=== PATIENT | female | born 1950 | race Caucasian/White ===

== ENCOUNTER → 2017-07-22 06:24 | Outpatient (CLI) | payer MEDICARE, SELFPAY ==
--- NOTE | 2017-07-22 06:27 | VDLE_ITS ---
Reason For Study: chronic venous insufficiency, leg pain RIGHT LEFT CFV is compressible, spontaneous, phasic, CFV is compressible, spontaneous, phasic, competent and demonstrates normal competent, and demonstrates normal augmentation. augmentation. FV is compressible, spontaneous, phasic, FV is compressible, spontaneous, phasic, competent and demonstrates normal competent and demonstrates normal augmentation. augmentation. POP V is compressible, spontaneous, phasic, POP V is compressible, spontaneous, phasic, competent and demonstrates normal competent and demonstrates normal augmentation. augmentation. T/P Trunk is compressible. T/P Trunk is compressible. PTV is compressible. PTV is compressible. RT PerV is compressible. LT PerV is compressible. S-F Junction is competent. S-F Junction is competent. GSV is incompetent throughout for greater GSV is incompetent throughout for greater than .5 seconds. GSV measures .451 x .428 than .5 seconds. GSV measures .296 x .296 cm. cm. ASV at the knee is incompetent for greater ASV at the knee is incompetent for greater than .5 seconds. ASV measures .387 x .365 than .5 seconds. ASV measures .177 x .166 cm. cm. ASV at the proximal calf is incompetent for ASV at the proximal calf is incompetent for greater than .5 seconds. ASV measures .249 greater than .5 seconds. ASV measures .220 x .318 cm. x .214 cm. ASV lateral groin is incompetent for greater SSV is incompetent for greater than .5 than .5 seconds. ASV measures .289 x .283 seconds. SSV measures .368 x .347 cm. cm. SSV is competent. Procedure Exam performed in department. The exam was diagnostic. Interpretation Summary Deep veins of the lower extremities are bilaterally patent and compressible segmentally. There is no evidence of deep vein thrombosis on either side. Valvular competence appears intact within the proximal deep venous systems bilaterally. The greater saphenous veins appear bilaterally patent and compressible segmentally. Sapheno-femoral junctions are bilaterally competent . Segmental valvular incompetence is noted within the greater saphenous veins bilaterally. The right small saphenous vein is patent and competent. The left small saphenous vein is patent and incompetent. The right anterior accessory saphenous vein is incompetent. Right accessory saphenous veins at the knee and proximal calf are incompetent. Left accessory saphenous veins at the knee and proximal calf are incompetent. Ordering Physician: Forest Kirkland Performed By: Williams Olivier RVT
--- NOTE | 2017-07-27 11:11 | LEAS_ITS ---
Arterial Study - Arterial Study Arterial Study: This is a 66-year-old female who presents with a history of peripheral arterial occlusive disease. The patient was brought to the noninvasive vascular laboratory at this time for the purpose of bilateral noninvasive lower extremity arterial assessment. Doppler signal assessment was used to evaluate the pulses at ankle level bilaterally. The posterior tibial and dorsalis pedis pulses were triphasic bilaterally. Segmental limb pressures were obtained bilaterally. The right ankle pressure, as determined by posterior tibial pulse, was measured at 169 mmHg. The right ankle pressure, as determined by dorsalis pedis pulse, was measured at 168 mmHg. The left ankle pressure, as determined by posterior tibial pulse, was measured at 163 mmHg. The left ankle pressure, as determined by dorsalis pedis pulse, was measured at 169 mmHg. Pulse-volume recordings were obtained bilaterally and segmentally at ankle and digital levels. Waveform amplitudes appeared to be satisfactory bilaterally. Resting ankle-brachial indices were calculated bilaterally. The resting right ankle-brachial index was calculated to be 1.16. The resting left ankle- brachial index was calculated to be 1.16. Impression: Based upon the findings of this resting noninvasive lower extremity arterial study, there is no evidence of significant atherosclerotic peripheral arterial occlusive disease in the lower extremities bilaterally. Triphasic waveforms were noted at ankle level bilaterally. Resting ankle-brachial indices were bilaterally normal. In summary, this represents a normal resting noninvasive lower extremity arterial study bilaterally.
== END ==
PROVIDERS: Family Provider Family Medicine; PCP Family Medicine; Visit Provider Surgery
DX: I73.9 Peripheral vascular disease, unspecified (principal); M79.605 Pain in left leg; M79.604 Pain in right leg; F17.200 Nicotine dependence, unspecified, uncomplicated
CPT/HCPCS: 93922; 93970

== ENCOUNTER → 2020-06-07 12:49 | Outpatient (CLI) | payer MEDICARE, SELFPAY ==
[2020-06-07 08:17] VITALS: BMI 32.6
[2020-06-12 16:44] LABS: HPV APTIMA, High Risk Negative (Negative)
== END ==
PROVIDERS: PCP Family Medicine; Referring Provider Obstetrics & Gynecology; Visit Provider Obstetrics & Gynecology
DX: Z12.4 Encounter for screening for malignant neoplasm of cervix (principal)
CPT/HCPCS: 87624; 88175; G0145

== ENCOUNTER → 2020-06-15 11:14 | Outpatient (CLI) | payer MEDICARE, SELFPAY ==
[2020-06-07 08:17] VITALS: BMI 32.6
--- NOTE | 2020-06-15 11:16 | US_ITS ---
STUDY: ULTRASOUND OF THE FEMALE PELVIS - COMPLETE REASON FOR EXAM: Female, 69 years old. Pelvic cramping -- FX OVARIAN CA LMP: Patient is postmenopausal. TECHNIQUE: Transabdominal and Transvaginal TECHNICAL QUALITY: Adequate. COMPARISON: None. FINDINGS: The uterus is anteverted and is in a midline position. The uterus measures 6.8 cm x 3.1 cm x 4.2 cm. There is a Nabothian cyst of the cervix. The endometrium is thickened and measures 7.8 mm in thickness, and is heterogeneous (striated). I suspect a 1.1 cm x 1 cm x 0.6 cm endometrial polyp. There is no demonstrated myometrial mass. There is a 1 cm x 0.8 cm x 0.6 cm complex solid nodule within the cervix with increased vascularity. Clinical correlation is recommended. The right ovary is non-visualized. The left ovary is non-visualized. There is no fluid in the cul-de-sac. The pre void volume of the bladder was 148 ml. US/Pelvic (Non ) IMPRESSION: Heterogeneous thickening of the endometrium with a possible 1.1 cm x 1 cm x 0.6 cm endometrial polyp. 1 cm x 0.8 cm x 0.6 cm complex solid nodule in the cervix is vascularity. Clinical correlation is recommended. Electronically Signed: Campbell Kearney MD at 13:16 EDT , Service support ,
--- NOTE | 2020-06-15 11:16 | US_ITS ---
STUDY: ULTRASOUND OF THE FEMALE PELVIS - COMPLETE REASON FOR EXAM: Female, 69 years old. Pelvic cramping -- FX OVARIAN CA LMP: Patient is postmenopausal. TECHNIQUE: Transabdominal and Transvaginal TECHNICAL QUALITY: Adequate. COMPARISON: None. FINDINGS: The uterus is anteverted and is in a midline position. The uterus measures 6.8 cm x 3.1 cm x 4.2 cm. There is a Nabothian cyst of the cervix. The endometrium is thickened and measures 7.8 mm in thickness, and is heterogeneous (striated). I suspect a 1.1 cm x 1 cm x 0.6 cm endometrial polyp. There is no demonstrated myometrial mass. There is a 1 cm x 0.8 cm x 0.6 cm complex solid nodule within the cervix with increased vascularity. Clinical correlation is recommended. The right ovary is non-visualized. The left ovary is non-visualized. There is no fluid in the cul-de-sac. The pre void volume of the bladder was 148 ml. US/Transvaginal Non- IMPRESSION: Heterogeneous thickening of the endometrium with a possible 1.1 cm x 1 cm x 0.6 cm endometrial polyp. 1 cm x 0.8 cm x 0.6 cm complex solid nodule in the cervix is vascularity. Clinical correlation is recommended. Electronically Signed: Campbell Kearney MD at 13:16 EDT , Service support ,
== END ==
PROVIDERS: PCP Family Medicine; Referring Provider Obstetrics & Gynecology; Visit Provider Obstetrics & Gynecology
DX: R10.2 Pelvic and perineal pain (principal)
CPT/HCPCS: 76830; 76856

== ENCOUNTER 2020-07-25 05:42 | Day surgery (SDC) | payer MEDICARE, SELFPAY ==
[2020-07-13 13:16] VITALS: BMI 32.3
--- NOTE | 2020-07-25 | EMB_PTH ---
PATIENT: KLEBER CALDERÓN LOC: [facility] [place] U#:[id number] AGE/SX: 69/F ROOM: RE07/25/[address]: Dr. Geraldine Caruso MD : [id number] BED: DIS: 07/25/2020 SPEC #: [id number] RECD: 07/25/20 10:02 STATUS: BERNARDINO RIGGS #: [id number] SILVINO: 07/25/20 00:[address]: Geraldine Caruso DEPT: SURGICAL PATHOLOGY RECD BY: Renae Arteaga ENTERED: 07/25/20 10:41 SP TYPE: ENDOM BX/C ANSON DR: Dr. Smooth Dubois MD Tissues: Endometrium, NOS Procedures: Surgery Specimen Level IV HEADER OPERATION: Hysteroscopy, D & C Symphion PRE-OP DIAGNOSIS: Endometrial polyp TISSUE SUBMITTED: Endometrial curettings, polyp MICROSCOPIC DIAGNOSIS Endometrial curettings, polyp: Cystic atrophic endometrium. Fragments of myometrium. Fragments of benign squamous epithelium. See comment. ERASTO:moses 07/26/2020 COMMENT A few of the fragments have polypoid appearance and may represent fragments of polyp with cystic atrophic changes. MICROSCOPIC DESCRIPTION Slides are reviewed. GROSS DESCRIPTION Received in fixative is one container labeled with the patient's name and designated endometrial curettings, polyp. The specimen consists of multiple irregular fragments of rivers-pink soft tissue that in aggregate measure 3 x 2.5 x 0.3 cm. The specimen is totally submitted in one cassette. / ERASTO:moses 07/25/2020 TC:5 CPT: 41398
[2020-07-25] MEDS: Acetaminophen 500 MG Tablet 1000 MG PO (09:26)
[2020-07-25 10:24] VITALS: BP 135/71; PULSE 71; RESP 16; TEMP 36.4; O2SAT 95
--- NOTE | 2020-07-25 10:27 | OP.PCM_ITS ---
Problems Associated Problem List Diagnoses (1) Endometrial polyp: Report of Operation Date of Procedure: 07/25/20 Pre-Operative Diagnosis: Suspected endometrial polyp Post-Operative Diagnosis: Endometrial polyp Surgery/Procedure Performed:: Hysteroscopy, D&C, symphion polypectomy Description of Surgical Findings:: Multiple endometrial polyps. Cervical stenosis. materials research engineer: None Type of Anesthesia: MAC Specimen's removed: EMC, polyp Estimated Blood Loss (mL): 10 Fluids Replaced: 1000 Description of Procedure: The patient was taken to the operating room where general anesthesia was obtained without difficulty. She was prepped and draped in the dorsolithotomy position with yellowfin stirrups. Weighted speculum was placed in the posterior aspect of the vagina and the anterior lip of the cervix was grasped with a single-tooth tenaculum. The cervix was sequentially dilated to accommodate the hysteroscope. The hysteroscope was then introduced into the uterine cavity and the above findings were noted. The symphion device was then introduced through the hysteroscope and activated to fully resect the polyps. Hemostasis was noted. The procedure was deemed complete. All instruments were then removed from the vagina. The patient was again from anesthesia and taken to the recovery room in stable condition. Complications None apparent Admit VTE Documentation VTE Present on Admission: No VTE Mechan Device Prophylaxis: [facility] [place] Pharm Prophylaxis ordered?: No [id number]: [id number] Hysteroscopy, EMC,Polypectomy
[2020-07-25 10:31] LABS: Hematocrit 45.4 % (37-47); Hemoglobin 14.7 g/dL (12.0-15.0); Mean Corp Hgb Conc 32.4 g/dL (32-36); Mean Corpuscular Hgb 29.9 pg (27.0-32.0); Mean Corpuscular Volume 92.5 fL (81-99); Mean Platelet Vol. 9.8 fl (6.2-12.0); Platelet Count 230 K/mm3 (150-450); RBC Distribution Width CV 13.5 % (11.6-14.6); RBC Distribution Width SD 45.7 fl (35.1-43.9); Red Blood Count 4.91 M/mm3 (4.2-5.4); White Blood Count 8.5 K/mm3 (4.4-11.0)
--- NOTE | 2020-07-25 10:35 | HP.PCM.OB_ITS ---
HPI - General HPI Narrative KLEBER CALDERÓN, is a 69 F who presents for hysteroscopy D&C, polypectomy for suspected endometrial polyp [facility] Medical History (Updated 07/25/20 @ 10:[address] Geraldine Caruso MD) Hypokalemia Pre-diabetes Swelling Home Medications biotin 5 mg capsule 5 mg PO DAILY 06/07/20 [History Last Taken Unknown] calcium carbonate 600 mg (1,500 mg)-vitamin D3 500 unit capsule 600 cap PO DAILY 06/07/20 [History Last Taken Unknown] furosemide 40 mg tablet 40 mg PO DAILY 06/07/20 [History Last Taken Unknown] loratadine 10 mg tablet 10 mg PO DAILY 06/07/20 [History Last Taken Unknown] lutein 20 mg tablet 20 mg PO DAILY 06/07/20 [History Last Taken Unknown] omega-3 fatty acids 1,000 mg capsule 1,000 mg PO DAILY 06/07/20 [History Last Taken Unknown] potassium chloride 10 mEq tablet,extended release 10 meq PO TID tab 06/07/20 [History Last Taken Unknown] vit C,E,zinc,[id number] 250 mg-lutein 5 mg-zeaxanthin 1 mg capsule 1 cap PO DAILY 06/07/20 [History Last Taken Unknown] Allergy/AdvReac Type Severity Reaction Status Date / Time aspirin Allergy Mild upset Verified 07/19/20 13:17 stomach formaldehyde Allergy Mild unknown Verified 07/19/20 13:17 lanolin Allergy Mild hives Verified 07/19/20 13:17 Latex, Natural Rubber Allergy Mild hives Verified 07/19/20 13:17 nickel Allergy Mild unknown Verified 07/19/20 13:17 nylon Allergy Mild unknown Verified 07/19/20 13:17 Penicillins Allergy Mild hives Verified 07/19/20 13:17 Sulfa (Sulfonamide Allergy Mild itching Verified 07/19/20 13:17 Antibiotics) bacitracin Allergy Rash Verified 07/19/20 13:17 [From Neosporin ([id number])] neomycin Allergy Rash Verified 07/19/20 13:17 [From Neosporin ([id number])] polymyxin B Allergy Rash Verified 07/19/20 13:17 [From Neosporin ([id number])] quaternium Allergy Rash Verified 07/19/20 13:17 Family History Mother Diabetes Hypertension Surgical History History of mandibular surgery History of surgery on left wrist s/p right heel surgery S/P tubal ligation Status post right knee replacement Social History (Updated 07/14/20 @ 10:[address] Geraldine Caruso MD) Smoking Status: Current every day smoker alcohol intake: never substance use type: does not use caffeine: No frequency: 1-2 times per week seatbelt use: always do you feel safe at home: Yes additional social history: -[place] History 2 Elective abortions Hx Para 2 Spontaneous abortions Hx # Term Pregnancies Ectopic pregnancies Hx # Pregnancies Multiple births # of living children ROS Eyes Eyes: Reports systems reviewed and no addt'l complaints, except as documented ENT HEENT: Reports systems reviewed and no addt'l complaints, except as documented Cardiovascular Cardiovascular: Reports systems reviewed and no addt'l complaints, except as documented Respiratory/Chest Respiratory/Chest: Reports systems reviewed and no addt'l complaints, except as documented Gastrointestinal Gastrointestinal: Reports systems reviewed and no addt'l complaints, except as documented Genitourinary Genitourinary: Reports systems reviewed and no addt'l complaints, except as documented Musculoskeletal Musculoskeletal: Reports systems reviewed and no addt'l complaints, except as documented Integumentary Integumentary: Reports systems reviewed and no addt'l complaints, except as documented Neurologic Neurologic: Reports systems reviewed and no addt'l complaints, except as documented Psychiatric Psychiatric: Reports systems reviewed and no addt'l complaints, except as documented Endocrine Endocrinology: Reports systems reviewed and no addt'l complaints, except as documented Hematologic/Lymphatic Hematologic/Lymphatic: Reports systems reviewed and no addt'l complaints, except as documented Allergic/Immunologic Allergic/Immunologic: Reports systems reviewed and no addt'l complaints, except as documented Vital Signs Vital Signs Vital Signs: 07/25/20 09:16 07/25/20 10:24 Temperature 97.6 F L Temperature Source Temporal Pulse Rate 71 Respiratory Rate 16 Respiratory Pattern Normal Blood Pressure 135/71 H Blood Pressure Mean 92 Blood Pressure Source Monitor Blood Pressure Position Semi-Fowlers Blood Pressure Location Right Arm Pulse Ox 95 Oxygen Delivery Method Room Air Physical Exam Const alert, oriented x3, no apparent distress, average body habitus, healthy appearing and well nourished HEENT normocephalic and moist oral mucous membranes Head and Scalp: atraumatic Eyes PERRL and EOMs intact bilaterally Neck full ROM Resp normal respiratory effort, no retractions and no use of accessory muscles Cardio regular rate and regular rhythm GI soft to palpation, non-tender and non-distended Extremity normal to inspection and full ROM Skin no rashes or lesions noted Neuro no focal motor deficits and no sensory deficits noted Psych mental status grossly normal, affect normal, speech normal and activity/motor behavior normal Assessment & Plan Assessment/Plan (1) Endometrial polyp: Status: Acute Code(s): N84.0 - Polyp of corpus uteri Plan: Patient presents for hysteroscopy, D&C, polypectomy US showed endometrial polyp measuring? 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 The risks, benefits, indications, and alternatives to the procedure were discussed with the patient including bleeding, infection, and damage to surrounding structures. Discussed that risks are very low with D&C. Discussed the possibility of perforation and that this could require laparotomy or laparoscopy. Discussed the possibility of damage to surrounding structures including uterus, tubes, ovaries, bowel, or bladder. Understands the risk of hospitalization or reoperation. Voices understanding and agrees to proceed. Aware needs medical clearance by PCP prior to surgery Planned procedure is hysteroscopy, D&C, polypectomy, possible symphion
== END 2020-07-25 10:35 | disposition home or self-care (01) ==
LOC: SDC 07:30 → AC 07:30
PROVIDERS: PCP Family Medicine; Referring Provider Obstetrics & Gynecology; Visit Provider Obstetrics & Gynecology
PROC: 0UB98ZZ Excision of Uterus, Via Natural or Artificial Opening Endoscopic (ICD-10-PCS; CPT 58558; principal; 2020-07-25 07:15)
DX: N84.0 Polyp of corpus uteri (principal); Z20.828 Contact with and (suspected) exposure to other viral communicable diseases; E87.6 Hypokalemia; R73.03 Prediabetes; F17.200 Nicotine dependence, unspecified, uncomplicated
CPT/HCPCS: 00952; 58558; 85027; 86850; 86900; 86901; 87426; 88305; C9803; J7120; J2405

== ENCOUNTER 2023-11-27 13:34 | Outpatient (RCR) | payer MEDICARE, SELFPAY ==
[2023-11-27 13:55] VITALS: BP 142/75; PULSE 84; TEMP 36.4; BMI 30.1
--- NOTE | 2023-11-27 21:42 | PCM.WC.HP ---
History of Present Illness Date of Service: 11/27/23 Chief Complaint: LLE wound and cellulitis History of Wound: Gisselle Medina is a 73 y/o female who presents to the wound center today for evaluation and management of recurrent LLE wounds and cellulitis. She is accompanied to her appointment today by her daughter. She is known to me from the vascular surgery office where I have seen her in regards to her likely venous insufficiency. At the time of her office visit, we had discussed obtaining venous reflux studies but she had declined at that time and conservative management was continued. She had no active wounds at that time. She recently had a hip replacement in August. Since then, she has not really been wearing her compression stockings and she has been having recurrent wounds and cellulitis in her LLE. Her daughter reports that these wounds will fluctuate a lot with them seeming nearly healed one day and then significantly worsened the next. She was on antibiotics for cellulitis about two weeks ago. Over the last few days she has noticed that the redness seems to have returned and she has several superficial wounds. She does have many allergies including penicillin and sulfa. She has recently tolerated doxycyline well. [facility] Medical History (Updated 11/27/23 @ 22:47 by KATHY Gutierrez) Hypokalemia Swelling Pre-diabetes Home Medications ?Medication ?Instructions ?Recorded ?Last Taken ?Type furosemide 40 mg tablet (Lasix) 40 mg PO DAILY 06/07/20 Unknown History loratadine 10 mg tablet (Claritin) 10 mg PO DAILY 06/07/20 Unknown History lutein 20 mg tablet 20 mg PO DAILY 06/07/20 Unknown History omega-3 fatty acids 1,000 mg 1,000 mg PO DAILY 06/07/20 Unknown History capsule (Fish Oil Concentrate) potassium chloride 10 mEq 10 meq PO TID 06/07/20 Unknown History tablet,extended release vit C,E,zinc,copper-htgkt9n 250 1 cap PO DAILY 06/07/20 Unknown History mg-lutein 5 mg-zeaxanthin 1 mg capsule (Ocuvite Adult 50 Plus) antiarthritic combination no.2 900 mg PO 08/13/21 Unknown History mg tablet (glucosamine-chondroitin) lactobacillus combination no.9 4 4,000 mmu cells PO DAILY 08/13/21 Unknown History billion cell capsule (Adult 50 Plus Probiotic) docusate sodium 100 mg capsule 100 mg PO DAILY 12/26/22 Unknown History (Stool Softener) mvtpqyke-ggx-obiop ac 400 tab PO 12/26/22 Unknown History mcg-calcium carb 500 mg-vit K1 20 mcg tablet (Women's 50 Plus Multivitamin) doxycycline hyclate 100 mg capsule 100 mg PO BID 14 days #28 caps 11/27/23 Unknown Rx Allergy/AdvReac Type Severity Reaction Status Date / Time aspirin Allergy Mild upset Verified 11/27/23 13:54 stomach formaldehyde Allergy Mild unknown Verified 11/27/23 13:54 lanolin Allergy Mild hives Verified 11/27/23 13:54 Latex, Natural Rubber Allergy Mild hives Verified 11/27/23 13:54 nickel Allergy Mild unknown Verified 11/27/23 13:54 nylon Allergy Mild unknown Verified 11/27/23 13:54 Penicillins Allergy Mild hives Verified 11/27/23 13:54 Sulfa (Sulfonamide Allergy Mild itching Verified 11/27/23 13:54 Antibiotics) bacitracin (From Neosporin Allergy Rash Verified 11/27/23 13:54 ([id number])) neomycin (From Neosporin Allergy Rash Verified 11/27/23 13:54 ([id number])) polymyxin B (From Neosporin Allergy Rash Verified 11/27/23 13:54 ([id number])) quaternium Allergy Rash Verified 11/27/23 13:54 Family History Mother Diabetes Hypertension Surgical History S/P tubal ligation s/p right heel surgery History of surgery on left wrist Status post right knee replacement History of mandibular surgery Social History (Updated 12/26/22 @ 10:34 by Teri Boogie) Smoking Status: Former smoker alcohol intake: never substance use type: does not use caffeine: No frequency: 1-2 times per week seatbelt use: always do you feel safe at home: Yes additional social history: -[place] (in the detention) Vital Signs Vital Signs Vital Signs: 11/27/23 13:55 Temperature 97.6 F L Temperature Source Temporal Pulse Rate 84 Blood Pressure 142/75 H Blood Pressure Mean 97 Blood Pressure Source Monitor Blood Pressure Position Sitting Blood Pressure Location Left Arm Oxygen Delivery Method Room Air Weight Weight: 170 lb Body Mass Index (BMI) 30.1 Physical Exam Const alert, oriented x3 and no apparent distress General Appearance: cooperative and comfortable HEENT normocephalic, head/scalp atraumatic, hearing grossly normal bilaterally and external ears normal Eyes General Eye: normal appearance of both eyes Neck General: normal visual inspection and trachea midline Resp no retractions and no use of accessory muscles Effort and Inspection: able to speak in complete sentences and symmetric chest movement Cardio regular rate and regular rhythm Extremity Extremity Narrative: Bilateral lower extremity edema, 1+ Skin Wounds: wounds noted Wound Narrative: L raya with a cluster of superficial wounds limited to skin breakdown with honey-colored crusted drainage overlying. No significant slough. There is significant surrounding erythema and warmth. No lymphangitic streaking, the erythema extends to the mid raya. She has significant hemosiderin deposition bilaterally. Neuro CN's II-XII intact bilaterally, moves all extremities, no focal motor deficits and no sensory deficits noted Psych mental status grossly normal, cooperative, affect normal, speech normal and activity/motor behavior normal Debridement Note Debridement Note No debridement was completed: No debridement was completed today Post-Debridement Measurements and Additional Note: Post-Debridement Measurements/Treatment - Nurse 1 - General Ulcer Assessment Start: 11/27/23 13:55 Freq: Status: Active Protocol: KACI Activity Type Activity Date Activity User E-sign Co-sign Detail Recorded Client Recorded Date Recorded By Document 11/27/23 13:55 KW [id number] 11/27/23 14:23 KW Edit Result 11/27/23 13:55 KW (1) [id number] 11/27/23 14:31 KW (1) Right - Posterior Tibial Doppler => Monophasic - Dorsalis Pedis Doppler => Monophasic - Hair Growth on Legs => No - Hair Growth on Toes => No - Temperature of Extremity => Warm - Capillary Refill => Less than 3 => Seconds Left - Posterior Tibial Doppler => Monophasic - Dorsalis Pedis Doppler => Multiphasic - Extremity Color => Red - Hair Growth on Legs => No - Hair Growth on Toes => No - Temperature of Extremity => Warm - Capillary Refill => Less than 3 => Seconds - Thick => No - Discolored => No - Deformed => No - Improper Length & Hygeine => No 11/27/23 13:55 WC - Today's Visit Information Type of service Initial Visit Arrival Mode Ambulatory,Cane Accompanied by daughter Patient Identification Verified (Name & Yes ) Height and Weight Height 5 ft 3 in Weight 170 lb Weight in Pounds 170.0 lbs Body Mass Index (BMI) 30.1 BMI Classification Obese BSA - Karla 1.80 Vital Signs Temperature (97.8 F-99.1 F) 97.6 F L Temperature Source Temporal Pulse Rate (60-100) 84 Pulse Location Monitor Respiratory rate source Observation Oxygen Delivery Method Room Air Blood Pressure (90/60-120/80) 142/75 H Blood Pressure Mean 97 Source Monitor Position Sitting Blood Pressure Location Left Arm History Since Last Visit- (Skip if this is Patient's initial visit) Left Footwear Regular Shoe Right Footwear Regular Shoe Pain Scale: 0-10 Numeric Is Patient Pain Free? No ble -Comments soreness and swelling Lower Extremity Assessment/ Foot Assessment/ Toe Nail Assessment Right -Posterior Tibial Doppler Monophasic -Dorsalis Pedis Doppler Monophasic -Hair Growth on Legs No -Hair Growth on Toes No -Temperature of Extremity Warm -Capillary Refill Less than 3 Seconds Left -Posterior Tibial Doppler Monophasic -Dorsalis Pedis Doppler Multiphasic -Extremity Color Red -Hair Growth on Legs No -Hair Growth on Toes No -Temperature of Extremity Warm -Capillary Refill Less than 3 Seconds -Thick No -Discolored No -Deformed No -Improper Length & Hygeine No Communication Assessment Preferred language Frisian Garland Maker Required No Able to Read Yes Able to Write Yes Right Hearing Abillity Normal Left Hearing Abillity Normal Visual Assistive Devices Glasses Teaching Assessment Preferences Verbal,Written, Demonstration Barriers to Learning None Readiness To Learn Excellent Willingness to Engage in Self Management High Activies Readiness to Engage in Self Management High Activities Anxiety Level Calm Cooperation Cooperative Perception Coherent Interest in Health Problem Asks Questions Education Importance Acknowledges Need Does Patient Smoke tobacco or other Yes substances Smoking Status Former smoker Is Patient Diabetic No Functional Assessment Recent Decline in Ability to Perform Denies Any Declines 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 Repair Armature Winder Helper to contact place of restorationism No WC - Nurse 1 - General Ulcer Measurement Start: 11/27/23 13:55 Freq: Status: Active Protocol: Activity Type Activity Date Activity User E-sign Co-sign Detail Recorded Client Recorded Date Recorded By Document 11/27/23 13:55 KW [id number] 11/27/23 14:23 11/27/23 13:55 Wound Center Nurse 1 #1 LT RAYA CLUSTER -Current Size (cm) - Length 8.5 -Current Size (cm) - Width 4 -Current Size (cm) - Depth 0.1 -Total Square Cm 34.0 -Date of Last Picture (Recall this 11/27/23 field) -Exudate Amt Small -Exudate Type Serosanguineous -Wound Margin Distinct, Outline Attached -Granulation Quality Pale,[place] -Necrosis Amt Large (67-100%) -Necrotic Tissue Type Adherent Slough -Texture (Eleni-wound Skin Appearance) Assessed -Moisture (Eleni-wound Skin Appearance) Assessed -Color (Eleni-wound Skin Appearance) Assessed, Erythema -Temperature (Eleni-wound Skin No Abnormality Appearance) (Pt Warm) -Tenderness on Palpation (Eleni-wound No Skin Appearance) -Ulcer Cleansing Soap and Water -Foul Odor after Cleansing No -Anesthetic Used 4% Lidocaine Solution Right Calf (cm) 40 Right Ankle (cm) 21.5 Left Calf (cm) 42.1 Left Ankle (cm) 22.2 WC - Nurse 2 - General Ulcer CM Notes Start: 11/27/23 13:55 Freq: Status: Active Protocol: Activity Type Activity Date Activity User E-sign Co-sign Detail Recorded Client Recorded Date Recorded By Document 11/27/23 14:46 [id number] 11/27/23 15:02 11/27/23 14:46 Wound Center Nurse 2 #2 RIGHT RAYA -Time 15:01 -Correct Patient Yes -Correct Side, Site, Position Yes -Wound/Ulcer Outcome Not Healed -Wound Comment(s) [id number] #1 LT RAYA CLUSTER -Time 14:47 -Correct Patient Yes -Correct Side, Site, Position Yes -Tunneling No -Undermining/Tunneling No -Circular Undermining No -Wound/Ulcer Outcome Not Healed -Ulcer Cleansing Rinsed/ Irrigated with Saline -Foul Odor after Cleansing No -Bioengineered Tissue No -Wound Comment(s) [id number] Pain Scale: 0-10 Numeric Is Patient Pain Free? Yes WC - Nurse 3 - General Ulcer D/C NN Start: 11/27/23 13:55 Freq: Status: Active Protocol: Activity Type Activity Date Activity User E-sign Co-sign Detail Recorded Client Recorded Date Recorded By Document 11/27/23 15:27 MARYCARMEN [id number] 11/27/23 15:28 KW 11/27/23 15:27 Wound Care Center Nurse 3 BLE -Multi-Layered Wrap Application Unna Boot - Bilateral ($) Pain Scale: 0-10 Numeric Is Patient Pain Free? Yes WC - Visit Discharge Discharge Condition Stable Ambulatory Status Ambulatory,Cane Transportation Private Auto Accompanied by DAUGHTER Medication Reconcilliation completed & No provided to patient/care provider Clinical Summary of Care Provided Yes Charges/Coding Visit Charges Office Visits / Consults: 13074 OV L4 Est 30min Assessment/Plan Assessment/Plan (1) Venous stasis dermatitis: CODE(S): I87.2 - Venous insufficiency (chronic) (peripheral) (2) Chronic venous hypertension (idiopathic) with ulcer and inflammation of left lower extremity: CODE(S): I87.332 - Chronic venous hypertension (idiopathic) with ulcer and inflammation of left lower extremity (3) Ulcer of left lower leg: CODE(S): L97.929 - Non-pressure chronic ulcer of unspecified part of left lower leg with unspecified severity PLAN: Venous ulceration of the L anteromedial raya limited to breakdown of the skin (4) Cellulitis of left leg: CODE(S): L03.116 - Cellulitis of left lower limb (5) Ulcer of right leg: CODE(S): L97.919 - Non-pressure chronic ulcer of unspecified part of right lower leg with unspecified severity PLAN: Plan Wound cultures were obtained today. I did initiate doxycycline 100mg BID x 14 days empirically. I will plan to adjust this regimen as indicated by sensitivity results. For both wound care and compression, will apply Unna boots bilaterally. She does currently have HHC due to recent hip replacement, will send wound care orders to them and see if they can change her Unna boots senior care through the week. She is advised to elevate her legs at all times of rest, avoid idle prologned sitting/standing, and participate in regular walking/calf pumps for exercise. Given her edema and recurrent ulcerations, I think she would benefit from Circaids. Will measure and place order for these today. She will return to the clinic in 1 week or sooner as needed.
--- NOTE | 2023-12-03 09:14 | WC ---
PHOTO 11/27/23 CELSO MANUEL(I)
== END 2023-11-29 23:59 | disposition home or self-care (01) ==
LOC: WC 13:34
PROVIDERS: PCP Family Medicine; Visit Provider Physician Assistant
DX: I87.332 Chronic venous hypertension (idiopathic) with ulcer and inflammation of left lower extremity (principal); L97.821 Non-pressure chronic ulcer of other part of left lower leg limited to breakdown of skin; L03.116 Cellulitis of left lower limb; I87.2 Venous insufficiency (chronic) (peripheral); Z88.0 Allergy status to penicillin; Z88.2 Allergy status to sulfonamides; Z79.899 Other long term (current) drug therapy; Z87.891 Personal history of nicotine dependence
CPT/HCPCS: 29580; 87070; 87075; 87077; 87186; 87205; 99213; G0463

== ENCOUNTER 2023-12-18 15:15 | Outpatient (RCR) | payer MEDICARE, SELFPAY ==
[2023-11-30 00:35] VITALS: BP 142/75; PULSE 84; TEMP 36.4; BMI 30.1
[2023-12-04 14:51] VITALS: BP 163/79; PULSE 92; RESP 18; TEMP 36.5; BMI 30.1
[2023-12-11 15:11] VITALS: BP 147/76; PULSE 88; RESP 18; TEMP 36.6; BMI 30.1
[2023-12-18 15:10] VITALS: BP 153/77; PULSE 86; RESP 18; TEMP 36.4; BMI 30.1
== END 2023-12-18 16:10 | disposition home or self-care (01) ==
LOC: WC 15:15
PROVIDERS: PCP Family Medicine; Visit Provider Physician Assistant
DX: I87.332 Chronic venous hypertension (idiopathic) with ulcer and inflammation of left lower extremity (principal); L97.821 Non-pressure chronic ulcer of other part of left lower leg limited to breakdown of skin; L03.116 Cellulitis of left lower limb; I87.2 Venous insufficiency (chronic) (peripheral); Z88.0 Allergy status to penicillin; Z88.2 Allergy status to sulfonamides; Z79.2 Long term (current) use of antibiotics; Z79.899 Other long term (current) drug therapy
CPT/HCPCS: 29580; 99213; G0463